=== PATIENT | male | born 1965 | race African-American/Black ===

== ENCOUNTER → 2017-05-27 | Outpatient (CLI) | payer MEDICAID ==
[~2017-05-27] MED LIST: AMLO5TAB2 PO; APIX5TAB PO; ASPI-621 PO; ATOR20TA9 PO; CARV12.52 PO; FURO40TA6 PO; IBUP-1484 PO; INSU100C SQ-INSULIN; INSU100I28 SQ-INSULIN; INSU100V5 SQ-INSULIN; LISI-170 PO; PHOS250T3 PO; REGADENOSON 0.4 MG/5 ML SYRINGE ONE; SIMV40TA PO
== END | disposition home or self-care (01) ==
LOC: RAD 10:34
PROVIDERS: ATTEND Physician Assistant
DX: I73.9 Peripheral vascular disease, unspecified (principal); R07.9 Chest pain, unspecified
CPT/HCPCS: 78452; 93017; A9502; J2785

== ENCOUNTER 2017-12-16 17:26 | Inpatient (IN) | payer MEDICAID ==
[~2017-12-16] VITALS: Ht 200.7 cm; Wt 148.5 kg
[~2017-12-16 17:26] MED LIST changes: -REGADENOSON 0.4 MG/5 ML SYRINGE ONE
[2017-12-16] MEDS ORDERED: SODIUM CHLORIDE 0.9% 1,000ML IVBOLUS ONE ×2 (18:00→19:00)
[2017-12-16 18:22] LABS: BASOPHILS # (AUTO) 0.02 x10^3/uL (0-0.1); BASOPHILS % (AUTO) 0 % (0-1); EOSINOPHILS # (AUTO) 0.24 x10^3/uL (0-0.4); EOSINOPHILS % (AUTO) 3 % (1-7); LYMPHOCYTES # (AUTO) 1.62 x10^3/uL (1-3.4); LYMPHOCYTES % (AUTO) 21 % (22-44); MD NO; MEAN CORPUSCULAR HEMOGLOBIN 28.6 pg (27.5-34.5); MEAN CORPUSCULAR HGB CONC 33.7 g/dL (33.2-36.2); MEAN CORPUSCULAR VOLUME 84.7 fL (81-97); MEAN PLATELET VOLUME 9.6 fL (7.4-10.4); MONOCYTES # (AUTO) 0.77 x10^3/uL (0.2-0.8); MONOCYTES % (AUTO) 10 % (2-9); NEUTROPHILS # (AUTO) 5.02 x10^3/uL (1.8-6.8); NEUTROPHILS % (AUTO) 66 % (42-75); PLATELET COUNT 210 x10^3/uL (130-400); RED CELL DISTRIBUTION WIDTH 14.2 % (9.4-14.8)
[2017-12-16] MEDS ORDERED: INSU100V8 SQ (18:28)
[2017-12-16 18:29] LABS: ACETONE, SERUM Negative (Negative)
[2017-12-16 18:34] LABS: ALBUMIN 3.1 g/dL (3.4-5.0); ANION GAP 10 mmol/L (5-15); CALCIUM 8.5 mg/dL (8.5-10.1); CHLORIDE 98 mmol/L (98-107); CREATININE 1.79 mg/dL (0.7-1.3)
[2017-12-16 18:55] LABS: MICROSCOPIC INDICATED
[2017-12-16] MEDS ORDERED: INSULIN REGULAR 100 UNITS/ML, 3ML VIAL ONE (18:56)
[2017-12-16 18:58] LABS: CULTURE INDICATED? NO
[2017-12-16] MEDS ORDERED: INSULIN REGULAR 100 UNITS/ML, 3ML VIAL IVPush ONE (19:00)
[2017-12-16] MEDS ORDERED: BISACODYL 10 MG SUPP PR PRN (21:00)
[2017-12-16] MEDS ORDERED: POLYETHYLENE GLYCOL 17 GM PACKET PO PRN (21:00)
[2017-12-16] MEDS ORDERED: ACETAMINOPHEN 325 MG TABLET PO PRN (21:00)
[2017-12-16] MEDS ORDERED: ONDANSETRON ODT 4 MG PO PRN (21:00)
[2017-12-16 21:28] VITALS: BP 147/94
[2017-12-16 21:46] LABS: ESTIMATED AVERAGE GLUCOSE 413 mg/dL (0-126); HEMOGLOBIN A1C > 16.0 % (4.2-6.3)
[2017-12-16] MEDS: SODIUM CHLORIDE 0.9% 1,000 ML IV SCH (21:49)
[2017-12-16] MEDS: APIXABAN 5 MG TABLET PO SCH (21:49)
[2017-12-16] MEDS: NEUTRA PHOS K 250 MG TABLET PO SCH (21:50)
[2017-12-16] MEDS: CARVEDILOL 12.5 MG TABLET PO SCH (21:50)
[2017-12-16] MEDS: AMLODIPINE 5 MG TABLET PO SCH (21:50)
[2017-12-16] MEDS: LISINOPRIL 20 MG TABLET PO SCH (21:50)
[2017-12-16] MEDS: ATORVASTATIN 20 MG TABLET PO SCH (21:50)
[2017-12-16] MEDS: INSULIN LISPRO 100 UNITS/ML, PEN SQ-INSULIN SCH (22:08)
[2017-12-16] MEDS: INSULIN GLARGINE 100 UNITS/ML, PEN SQ-INSULIN SCH (22:09)
[2017-12-17 02:07] VITALS: BP 123/74
[2017-12-17] MEDS: SODIUM CHLORIDE 0.9% 1,000 ML IV SCH ×3 (03:13→15:41)
[2017-12-17] MEDS: INSULIN LISPRO 100 UNITS/ML, PEN SQ-INSULIN SCH ×5 (03:14→20:45)
[2017-12-17 05:35] LABS: BASOPHILS # (AUTO) 0.04 x10^3/uL (0-0.1); BASOPHILS % (AUTO) 0 % (0-1); EOSINOPHILS # (AUTO) 0.44 x10^3/uL (0-0.4); EOSINOPHILS % (AUTO) 4 % (1-7); LYMPHOCYTES # (AUTO) 2.75 x10^3/uL (1-3.4); LYMPHOCYTES % (AUTO) 27 % (22-44); MD NO; MEAN CORPUSCULAR HEMOGLOBIN 28.4 pg (27.5-34.5); MEAN CORPUSCULAR HGB CONC 33.5 g/dL (33.2-36.2); MEAN CORPUSCULAR VOLUME 84.9 fL (81-97); MEAN PLATELET VOLUME 9.4 fL (7.4-10.4); MONOCYTES # (AUTO) 1.14 x10^3/uL (0.2-0.8); MONOCYTES % (AUTO) 11 % (2-9); NEUTROPHILS # (AUTO) 5.93 x10^3/uL (1.8-6.8); NEUTROPHILS % (AUTO) 58 % (42-75); PLATELET COUNT 219 x10^3/uL (130-400); RED BLOOD COUNT 5.98 x10^6/uL (4.38-5.82); RED CELL DISTRIBUTION WIDTH 14.4 % (9.4-14.8)
[2017-12-17 05:47] LABS: ALANINE AMINOTRANSFERASE 113 U/L (12-78); ALBUMIN 2.7 g/dL (3.4-5.0); ANION GAP 7 mmol/L (5-15); CHLORIDE 106 mmol/L (98-107)
[2017-12-17 05:49] LABS: ALKALINE PHOSPHATASE 102 U/L (45-117); BILIRUBIN,TOTAL 0.5 mg/dL (0.2-1.0); CREATININE 1.51 mg/dL (0.7-1.3); TOTAL PROTEIN 6.7 g/dL (6.4-8.2)
[2017-12-17 07:11] VITALS: BP 144/88
[2017-12-17] MEDS: NEUTRA PHOS K 250 MG TABLET PO SCH ×3 (08:33→20:45)
[2017-12-17] MEDS: CARVEDILOL 12.5 MG TABLET PO SCH ×2 (08:34→20:45)
[2017-12-17] MEDS: LISINOPRIL 20 MG TABLET PO SCH ×2 (08:35→20:45)
[2017-12-17] MEDS: APIXABAN 5 MG TABLET PO SCH ×2 (08:35→20:45)
[2017-12-17] MEDS: SENNA/DOCUSATE TABLET PO SCH (08:36)
[2017-12-17] MEDS: ASPIRIN 81 MG TABLET EC PO SCH (08:37)
[2017-12-17] MEDS: AMLODIPINE 5 MG TABLET PO SCH ×2 (08:38→20:45)
[2017-12-17] MEDS: INSULIN GLARGINE 100 UNITS/ML, PEN SQ-INSULIN SCH ×2 (08:45→20:46)
[2017-12-17 13:12] VITALS: BP 139/88
[2017-12-17 13:26] LABS: THYROID STIMULATING HORMONE 0.697 mIU/L (0.358-3.740)
[2017-12-17 13:27] LABS: ACETAMINOPHEN < 2 mcg/mL (10-30); SALICYLATE LEVEL < 1.7 mg/dL (2.8-20.0)
[2017-12-17] MEDS: THIAMINE 100MG TABLET PO SCH (16:17)
[2017-12-17] MEDS: FOLIC ACID 1 MG TABLET PO SCH (16:17)
[2017-12-17 17:40] LABS: AMPHETAMINE SCREEN, URINE Positive (Negative); BARBITURATE SCREEN, URINE Negative (Negative); BENZODIAZEPINE SCREEN, URINE Negative (Negative); CANNABINOID SCREEN, URINE Negative (Negative); COCAINE SCREEN, URINE Negative (Negative); METHADONE SCREEN, URINE Negative (Negative); OPIATE SCREEN, URINE Negative (Negative)
[2017-12-17 20:19] VITALS: BP 151/84
[2017-12-17] MEDS: LACTULOSE 20 GM/30 ML UDC PO SCH (20:44)
[2017-12-17] MEDS: ATORVASTATIN 20 MG TABLET PO SCH (20:45)
[2017-12-18 02:49] VITALS: BP 134/86
[2017-12-18 05:18] LABS: BASOPHILS # (AUTO) 0.03 x10^3/uL (0-0.1); BASOPHILS % (AUTO) 0 % (0-1); EOSINOPHILS # (AUTO) 0.34 x10^3/uL (0-0.4); EOSINOPHILS % (AUTO) 4 % (1-7); LYMPHOCYTES # (AUTO) 2.52 x10^3/uL (1-3.4); LYMPHOCYTES % (AUTO) 31 % (22-44); MD NO; MEAN CORPUSCULAR HEMOGLOBIN 28.5 pg (27.5-34.5); MEAN CORPUSCULAR HGB CONC 33.3 g/dL (33.2-36.2); MEAN CORPUSCULAR VOLUME 85.5 fL (81-97); MEAN PLATELET VOLUME 9.2 fL (7.4-10.4); MONOCYTES # (AUTO) 0.82 x10^3/uL (0.2-0.8); MONOCYTES % (AUTO) 10 % (2-9); NEUTROPHILS # (AUTO) 4.46 x10^3/uL (1.8-6.8); NEUTROPHILS % (AUTO) 55 % (42-75); PLATELET COUNT 207 x10^3/uL (130-400); RED BLOOD COUNT 5.95 x10^6/uL (4.38-5.82)
[2017-12-18 05:25] LABS: ALBUMIN 2.5 g/dL (3.4-5.0); ANION GAP 6 mmol/L (5-15); CALCIUM 7.6 mg/dL (8.5-10.1); CHLORIDE 106 mmol/L (98-107)
[2017-12-18 05:29] LABS: ALANINE AMINOTRANSFERASE 109 U/L (12-78); ALKALINE PHOSPHATASE 87 U/L (45-117); BILIRUBIN,TOTAL 0.4 mg/dL (0.2-1.0); CREATININE 1.31 mg/dL (0.7-1.3); TOTAL PROTEIN 6.2 g/dL (6.4-8.2)
[2017-12-18] MEDS: INSULIN LISPRO 100 UNITS/ML, PEN SQ-INSULIN SCH ×4 (07:00→20:46)
[2017-12-18 07:21] VITALS: BP 143/74
[2017-12-18] MEDS ORDERED: POTASSIUM CHLORIDE 20 MEQ TAB.ER.PRT PO ONE (09:00)
[2017-12-18] MEDS: LACTULOSE 20 GM/30 ML UDC PO SCH ×3 (10:38→20:47)
[2017-12-18] MEDS: LISINOPRIL 20 MG TABLET PO SCH ×2 (10:38→20:47)
[2017-12-18] MEDS: ASPIRIN 81 MG TABLET EC PO SCH (10:39)
[2017-12-18] MEDS: THIAMINE 100MG TABLET PO SCH (10:39)
[2017-12-18] MEDS: NEUTRA PHOS K 250 MG TABLET PO SCH ×3 (10:39→20:47)
[2017-12-18] MEDS: FOLIC ACID 1 MG TABLET PO SCH (10:39)
[2017-12-18] MEDS: SENNA/DOCUSATE TABLET PO SCH (10:39)
[2017-12-18] MEDS: CARVEDILOL 12.5 MG TABLET PO SCH ×2 (10:39→20:47)
[2017-12-18] MEDS: APIXABAN 5 MG TABLET PO SCH ×2 (10:39→20:47)
[2017-12-18] MEDS: AMLODIPINE 5 MG TABLET PO SCH ×2 (10:39→20:47)
[2017-12-18] MEDS: INSULIN GLARGINE 100 UNITS/ML, PEN SQ-INSULIN SCH ×2 (10:41→20:46)
[2017-12-18] MEDS: SODIUM CHLORIDE 0.9% 1,000 ML IV SCH ×2 (10:44→20:46)
[2017-12-18 13:12] VITALS: BP 146/92
[2017-12-18 18:45] VITALS: BP 163/81
[2017-12-18] MEDS: ATORVASTATIN 20 MG TABLET PO SCH (20:47)
[2017-12-19 01:15] VITALS: BP 142/73
[2017-12-19 05:17] LABS: ALBUMIN 2.7 g/dL (3.4-5.0); ANION GAP 4 mmol/L (5-15); CALCIUM 8.1 mg/dL (8.5-10.1); CHLORIDE 106 mmol/L (98-107)
[2017-12-19 05:32] LABS: ALANINE AMINOTRANSFERASE 107 U/L (12-78); ALKALINE PHOSPHATASE 88 U/L (45-117); BILIRUBIN,TOTAL 0.7 mg/dL (0.2-1.0); TOTAL PROTEIN 6.6 g/dL (6.4-8.2)
[2017-12-19] MEDS: INSULIN LISPRO 100 UNITS/ML, PEN SQ-INSULIN SCH ×2 (07:00→12:45)
[2017-12-19 07:25] VITALS: BP 146/83
[2017-12-19] MEDS: LACTULOSE 20 GM/30 ML UDC PO SCH (08:37)
[2017-12-19] MEDS: ASPIRIN 81 MG TABLET EC PO SCH (08:38)
[2017-12-19] MEDS: THIAMINE 100MG TABLET PO SCH (08:38)
[2017-12-19] MEDS: CARVEDILOL 12.5 MG TABLET PO SCH (08:38)
[2017-12-19] MEDS: APIXABAN 5 MG TABLET PO SCH (08:38)
[2017-12-19] MEDS: FOLIC ACID 1 MG TABLET PO SCH (08:38)
[2017-12-19] MEDS: SENNA/DOCUSATE TABLET PO SCH (08:38)
[2017-12-19] MEDS: AMLODIPINE 5 MG TABLET PO SCH (08:38)
[2017-12-19] MEDS: INSULIN GLARGINE 100 UNITS/ML, PEN SQ-INSULIN SCH (08:38)
[2017-12-19] MEDS: NEUTRA PHOS K 250 MG TABLET PO SCH (08:38)
[2017-12-19] MEDS: LISINOPRIL 20 MG TABLET PO SCH (08:38)
[2017-12-19] MEDS ORDERED: POTASSIUM CHLORIDE 20 MEQ TAB.ER.PRT PO ONE (09:00)
[2017-12-19] MEDS ORDERED: THIA100T6 PO (11:51)
[2017-12-19] MEDS ORDERED: INSU100I13 SQ-INSULIN (11:51)
[2017-12-19] MEDS ORDERED: LACT20SO13 PO (11:51)
[2017-12-19] MEDS ORDERED: INSU100I11 SQ-INSULIN (11:51)
[2017-12-19] MEDS ORDERED: MAGNESIUM OXIDE 400 MG TABLET PO SCH (12:00)
== END 2017-12-19 14:00 | disposition home or self-care (01) | DRG 91 ==
LOC: ED 21:06 → 3NE 21:23 → DCLOUNGE 12-19 13:36
PROVIDERS: ADMIT Hospitalist; ATTEND Hospitalist
DX: G92 Toxic encephalopathy (principal); N17.0 Acute kidney failure with tubular necrosis; D68.69 Other thrombophilia; E44.0 Moderate protein-calorie malnutrition; D75.1 Secondary polycythemia; E11.65 Type 2 diabetes mellitus with hyperglycemia; I48.2 Chronic atrial fibrillation; I50.32 Chronic diastolic (congestive) heart failure; E87.1 Hypo-osmolality and hyponatremia; E66.01 Morbid (severe) obesity due to excess calories; I11.0 Hypertensive heart disease with heart failure; T43.625A Adverse effect of amphetamines, initial encounter; E86.0 Dehydration; E87.6 Hypokalemia; F15.90 Other stimulant use, unspecified, uncomplicated; G47.33 Obstructive sleep apnea (adult) (pediatric); J45.909 Unspecified asthma, uncomplicated; Z79.01 Long term (current) use of anticoagulants; Z79.4 Long term (current) use of insulin; Z82.49 Family history of ischemic heart disease and other diseases of the circulatory system; Z87.891 Personal history of nicotine dependence; Y92.89 Other specified places as the place of occurrence of the external cause; Z91.14 Patient's other noncompliance with medication regimen; Z91.19 Patient's noncompliance with other medical treatment and regimen; Z68.36 Body mass index [BMI] 36.0-36.9, adult
CPT/HCPCS: 36415; 80048; 80053; 80307; 80329; 81001; 82010; 82040; 82140; 82607; 82800; 82947; 82962; 83036; 83735; 84100; 84443; 85025; 93005; 96361; 96374; G0480; J1815; J7030

== ENCOUNTER 2018-04-15 13:10 | Inpatient (IN) | payer MEDICAID ==
[~2018-04-15] VITALS: Ht 198.1 cm; Wt 145.6 kg
[~2018-04-15 13:10] MED LIST changes: +INSU100I11 SQ-INSULIN; +INSU100I13 SQ-INSULIN; +INSU100V8 SQ; +LACT20SO13 PO; +THIA100T67 PO
[2018-04-15] MEDS ORDERED: ASPIRIN 325 MG TABLET PO STA (13:28)
[2018-04-15] MEDS ORDERED: ASPIRIN 325 MG TABLET ONE (13:36)
[2018-04-15 13:44] LABS: BASOPHILS # (AUTO) 0.05 x10^3/uL (0-0.1); BASOPHILS % (AUTO) 1 % (0-1); EOSINOPHILS # (AUTO) 0.17 x10^3/uL (0-0.4); EOSINOPHILS % (AUTO) 2 % (1-7); LYMPHOCYTES # (AUTO) 2.98 x10^3/uL (1-3.4); LYMPHOCYTES % (AUTO) 28 % (22-44); MD NO; MEAN CORPUSCULAR HEMOGLOBIN 28.3 pg (27.5-34.5); MEAN CORPUSCULAR VOLUME 85.8 fL (81-97); MEAN PLATELET VOLUME 9.5 fL (7.4-10.4); MONOCYTES # (AUTO) 0.78 x10^3/uL (0.2-0.8); MONOCYTES % (AUTO) 7 % (2-9); NEUTROPHILS # (AUTO) 6.61 x10^3/uL (1.8-6.8); NEUTROPHILS % (AUTO) 62 % (42-75); PLATELET COUNT 280 x10^3/uL (130-400); RED BLOOD COUNT 7.27 x10^6/uL (4.38-5.82); RED CELL DISTRIBUTION WIDTH 14.3 % (9.4-14.8)
[2018-04-15] MEDS ORDERED: FENTANYL PF 100 MCG/2ML ONE (13:50)
[2018-04-15] MEDS ORDERED: HEPARIN 1,000 UNITS/ML, 10ML ONE (13:50)
[2018-04-15] MEDS ORDERED: NITROGLYCERIN 5 MG/ML, 10ML ONE (13:50)
[2018-04-15] MEDS ORDERED: TICAGRELOR 90 MG TABLET ONE (13:50)
[2018-04-15] MEDS ORDERED: BIVALIRUDIN 250 MG ONE (13:50)
[2018-04-15] MEDS ORDERED: MIDAZOLAM 1 MG/ML, 5ML ONE (13:50)
[2018-04-15] MEDS ORDERED: AMIODARONE 150 MG in DEXTROSE 5% 100 ML IV ONE (14:00)
[2018-04-15] MEDS ORDERED: FILTER 0.22 MICRON IV ONE (14:00)
[2018-04-15] MEDS ORDERED: METOPROLOL 1 MG/ML, 5ML ONE ×2 (14:03→14:08)
[2018-04-15 14:22] LABS: INTERNATIONAL NORMALIZED RATIO 0.93 (0.93-1.1); PROTHROMBIN TIME 9.7 Seconds (9.6-11.5)
[2018-04-15 14:24] LABS: TROPONIN I 0.633 ng/mL (0.000-0.045)
[2018-04-15] MEDS: AMIODARONE 900 MG in DEXTROSE 5% 482 ML IV PRN (15:01)
[2018-04-15] MEDS ORDERED: hydrALAzine 20 MG/ML, 1ML IVPush PRN (17:00)
[2018-04-15] MEDS ORDERED: LIDODERM 5% PATCH TD PRN (17:00)
[2018-04-15] MEDS ORDERED: LABETALOL 5MG/ML, 20ML IVPush PRN (17:00)
[2018-04-15] MEDS ORDERED: ENALAPRILAT 1.25 MG/ML, 2ML IVPush PRN (17:00)
[2018-04-15] MEDS ORDERED: BISACODYL 10 MG SUPP PR PRN (17:00)
[2018-04-15] MEDS ORDERED: ACETAMINOPHEN 325 MG TABLET PO PRN (17:00)
[2018-04-15 17:17] VITALS: BP 105/76
[2018-04-15 17:26] LABS: ANION GAP 9 mmol/L (5-15); CHLORIDE 95 mmol/L (98-107); CREATININE 2.23 mg/dL (0.7-1.3)
[2018-04-15 17:49] LABS: HEMOGLOBIN A1C 11.5 % (4.2-6.3)
[2018-04-15] MEDS: SODIUM CHLORIDE 0.9% 1,000 ML IV SCH (19:59)
[2018-04-15] MEDS: AMLODIPINE 5 MG TABLET PO SCH (20:31)
[2018-04-15] MEDS: ATORVASTATIN 20 MG TABLET PO SCH (20:31)
[2018-04-15] MEDS: APIXABAN 5 MG TABLET PO SCH (20:32)
[2018-04-15] MEDS: CARVEDILOL 12.5 MG TABLET PO SCH (20:32)
[2018-04-15] MEDS: INSULIN GLARGINE 100 UNITS/ML, PEN SQ-INSULIN SCH (20:32)
[2018-04-15] MEDS ORDERED: SIMVASTATIN 40 MG TABLET PO SCH (21:00)
[2018-04-15] MEDS ORDERED: DOCUSATE 100 MG CAPSULE PO PRN (21:00)
[2018-04-16 04:00] VITALS: BP 103/88
[2018-04-16 04:04] LABS: ALANINE AMINOTRANSFERASE 230 U/L (12-78); ALBUMIN 2.7 g/dL (3.4-5.0); ALKALINE PHOSPHATASE 133 U/L (45-117); ANION GAP 10 mmol/L (5-15); BILIRUBIN,TOTAL 0.5 mg/dL (0.2-1.0); CALCIUM 8.8 mg/dL (8.5-10.1); CHLORIDE 94 mmol/L (98-107); CHOL/HDL RATIO 10.3; CHOLESTEROL, TOTAL 216 mg/dL (140-239); CREATININE 1.99 mg/dL (0.7-1.3); HDL CHOL % 10 % (26-37); HDL CHOLESTEROL (DIRECT) 21 mg/dL (40-60); TOTAL PROTEIN 7.8 g/dL (6.4-8.2); TRIGLYCERIDES 435 mg/dL (50-200)
[2018-04-16 04:59] LABS: TROPONIN I 0.499 ng/mL (0.000-0.045)
[2018-04-16 05:12] LABS: BASOPHILS # (AUTO) 0.03 x10^3/uL (0-0.1); BASOPHILS % (AUTO) 0 % (0-1); EOSINOPHILS # (AUTO) 0.16 x10^3/uL (0-0.4); EOSINOPHILS % (AUTO) 2 % (1-7); LYMPHOCYTES % (AUTO) 26 % (22-44); MD NO; MEAN CORPUSCULAR HEMOGLOBIN 28.7 pg (27.5-34.5); MEAN CORPUSCULAR HGB CONC 33.5 g/dL (33.2-36.2); MEAN CORPUSCULAR VOLUME 85.6 fL (81-97); MEAN PLATELET VOLUME 9.8 fL (7.4-10.4); MONOCYTES # (AUTO) 0.69 x10^3/uL (0.2-0.8); MONOCYTES % (AUTO) 7 % (2-9); NEUTROPHILS # (AUTO) 6.39 x10^3/uL (1.8-6.8); NEUTROPHILS % (AUTO) 65 % (42-75); PLATELET COUNT 273 x10^3/uL (130-400); RED BLOOD COUNT 6.97 x10^6/uL (4.38-5.82); RED CELL DISTRIBUTION WIDTH 14.5 % (9.4-14.8)
[2018-04-16] MEDS: AMLODIPINE 5 MG TABLET PO SCH ×2 (08:12→20:04)
[2018-04-16] MEDS: APIXABAN 5 MG TABLET PO SCH ×2 (08:12→20:05)
[2018-04-16] MEDS: INSULIN GLARGINE 100 UNITS/ML, PEN SQ-INSULIN SCH ×3 (08:12→20:18)
[2018-04-16] MEDS: PANTOPRAZOLE 40 MG IV IVPush SCH (08:12)
[2018-04-16] MEDS: CARVEDILOL 12.5 MG TABLET PO SCH ×2 (08:12→20:04)
[2018-04-16] MEDS: THIAMINE 100MG TABLET PO SCH (08:13)
[2018-04-16] MEDS: INSULIN LISPRO 100 UNITS/ML, PEN SQ-INSULIN SCH ×4 (08:44→20:19)
[2018-04-16] MEDS ORDERED: ASPIRIN 81 MG TABLET EC PO SCH (09:00)
[2018-04-16] MEDS ORDERED: INSULIN GLARGINE 100 UNITS/ML, PEN SQ-INSULIN SCH (09:00)
[2018-04-16] MEDS ORDERED: FILTER 0.22 MICRON IV SCH (09:00)
[2018-04-16] MEDS ORDERED: INSULIN GLARGINE 100 UNITS/ML, PEN SQ-INSULIN ONE (09:00)
[2018-04-16] MEDS: SODIUM CHLORIDE 0.9% 1,000 ML IV SCH (09:29)
[2018-04-16] MEDS: AMIODARONE 900 MG in DEXTROSE 5% 482 ML IV PRN (09:29)
[2018-04-16] MEDS ORDERED: INSULIN LISPRO 100 UNITS/ML, PEN SQ-INSULIN SCH (11:00)
[2018-04-16 17:44] VITALS: BP 111/81
[2018-04-16 18:34] VITALS: BP 117/78
[2018-04-16] MEDS: ATORVASTATIN 20 MG TABLET PO SCH (20:04)
[2018-04-17] MEDS: INSULIN LISPRO 100 UNITS/ML, PEN SQ-INSULIN SCH ×6 (00:56→21:21)
[2018-04-17 01:10] VITALS: BP 104/72
[2018-04-17 05:11] LABS: BASOPHILS # (AUTO) 0.02 x10^3/uL (0-0.1); BASOPHILS % (AUTO) 0 % (0-1); EOSINOPHILS # (AUTO) 0.21 x10^3/uL (0-0.4); EOSINOPHILS % (AUTO) 2 % (1-7); LYMPHOCYTES # (AUTO) 2.52 x10^3/uL (1-3.4); LYMPHOCYTES % (AUTO) 26 % (22-44); MD NO; MEAN CORPUSCULAR HEMOGLOBIN 29.2 pg (27.5-34.5); MEAN CORPUSCULAR HGB CONC 33.8 g/dL (33.2-36.2); MEAN CORPUSCULAR VOLUME 86.4 fL (81-97); MEAN PLATELET VOLUME 9.4 fL (7.4-10.4); MONOCYTES # (AUTO) 0.72 x10^3/uL (0.2-0.8); MONOCYTES % (AUTO) 7 % (2-9); NEUTROPHILS # (AUTO) 6.26 x10^3/uL (1.8-6.8); NEUTROPHILS % (AUTO) 64 % (42-75); PLATELET COUNT 255 x10^3/uL (130-400); RED CELL DISTRIBUTION WIDTH 14.3 % (9.4-14.8)
[2018-04-17 05:17] LABS: CHLORIDE 99 mmol/L (98-107)
[2018-04-17 05:24] LABS: ALANINE AMINOTRANSFERASE 184 U/L (12-78); ALBUMIN 2.5 g/dL (3.4-5.0); ALKALINE PHOSPHATASE 98 U/L (45-117); ANION GAP 9 mmol/L (5-15); BILIRUBIN,TOTAL 0.6 mg/dL (0.2-1.0); CALCIUM 8.4 mg/dL (8.5-10.1); TOTAL PROTEIN 6.9 g/dL (6.4-8.2)
[2018-04-17] MEDS ORDERED: PROPOFOL 10 MG/ML, 20ML ONE (08:05)
[2018-04-17] MEDS: PANTOPRAZOLE 40 MG IV IVPush SCH (09:27)
[2018-04-17] MEDS: APIXABAN 5 MG TABLET PO SCH ×2 (09:28→21:19)
[2018-04-17] MEDS: AMLODIPINE 5 MG TABLET PO SCH ×2 (09:28→21:20)
[2018-04-17] MEDS: CARVEDILOL 12.5 MG TABLET PO SCH ×2 (09:28→21:20)
[2018-04-17] MEDS: THIAMINE 100MG TABLET PO SCH (09:28)
[2018-04-17] MEDS: INSULIN GLARGINE 100 UNITS/ML, PEN SQ-INSULIN SCH ×2 (09:31→21:20)
[2018-04-17] MEDS: AMIODARONE 900 MG in DEXTROSE 5% 482 ML IV PRN (13:18)
[2018-04-17 19:15] VITALS: BP 112/68
[2018-04-17 21:14] VITALS: BP 120/73
[2018-04-17] MEDS: ATORVASTATIN 20 MG TABLET PO SCH (21:19)
[2018-04-18] MEDS: INSULIN LISPRO 100 UNITS/ML, PEN SQ-INSULIN SCH ×6 (00:40→20:42)
[2018-04-18 01:33] VITALS: BP 130/80
[2018-04-18 08:23] VITALS: BP 125/77
[2018-04-18] MEDS: AMLODIPINE 5 MG TABLET PO SCH ×2 (08:24→20:43)
[2018-04-18] MEDS: CARVEDILOL 12.5 MG TABLET PO SCH ×2 (08:24→20:42)
[2018-04-18] MEDS: THIAMINE 100MG TABLET PO SCH (08:24)
[2018-04-18] MEDS: INSULIN GLARGINE 100 UNITS/ML, PEN SQ-INSULIN SCH ×2 (08:25→20:44)
[2018-04-18] MEDS: APIXABAN 5 MG TABLET PO SCH ×2 (08:25→20:42)
[2018-04-18] MEDS: PANTOPRAZOLE 40 MG IV IVPush SCH (08:25)
[2018-04-18] MEDS: ASPIRIN 81 MG TABLET EC PO SCH (10:07)
[2018-04-18] MEDS: AMIODARONE 200 MG TABLET PO SCH (10:07)
[2018-04-18 14:40] VITALS: BP 102/65
[2018-04-18 19:10] VITALS: BP 110/63
[2018-04-18 20:31] VITALS: BP 122/72
[2018-04-18] MEDS: ATORVASTATIN 20 MG TABLET PO SCH (20:43)
[2018-04-19 00:20] VITALS: BP 116/71
[2018-04-19] MEDS: INSULIN LISPRO 100 UNITS/ML, PEN SQ-INSULIN SCH ×4 (00:40→11:46)
[2018-04-19] MEDS: ASPIRIN 81 MG TABLET EC PO SCH (05:31)
[2018-04-19] MEDS ORDERED: PANTOPROZOLE 40MG TABLET PO SCH (07:36)
[2018-04-19 07:50] VITALS: BP 124/77
[2018-04-19] MEDS: CARVEDILOL 12.5 MG TABLET PO SCH (07:53)
[2018-04-19] MEDS: APIXABAN 5 MG TABLET PO SCH (07:53)
[2018-04-19] MEDS: AMLODIPINE 5 MG TABLET PO SCH (07:54)
[2018-04-19] MEDS: THIAMINE 100MG TABLET PO SCH (07:54)
[2018-04-19] MEDS: AMIODARONE 200 MG TABLET PO SCH (07:54)
[2018-04-19] MEDS: INSULIN GLARGINE 100 UNITS/ML, PEN SQ-INSULIN SCH (07:55)
[2018-04-19] MEDS ORDERED: AMIODARONE 200 MG TABLET PO SCH (09:00)
[2018-04-19] MEDS ORDERED: AMIO200T42 PO (10:50)
[2018-04-19] MEDS ORDERED: INSU100I13 SQ-INSULIN (10:50)
[2018-04-19] MEDS ORDERED: LISI5TAB7 PO (11:01)
[2018-04-19 14:03] VITALS: BP 126/77
== END 2018-04-19 16:23 | disposition home or self-care (01) | DRG 280 ==
LOC: ED 13:52 → EDIP 13:53 → CCU 14:45 → 5SO 04-16 17:26
PROVIDERS: ADMIT Hospitalist; ATTEND Hospitalist
PROC: 4A023N7 Measurement of Cardiac Sampling and Pressure, Left Heart, Percutaneous Approach (ICD-10-PCS; 2018-04-15)
PROC: B2111ZZ Fluoroscopy of Multiple Coronary Arteries using Low Osmolar Contrast (ICD-10-PCS; 2018-04-15)
PROC: B2151ZZ Fluoroscopy of Left Heart using Low Osmolar Contrast (ICD-10-PCS; 2018-04-15)
PROC: B24BZZ4 Ultrasonography of Heart with Aorta, Transesophageal (ICD-10-PCS; 2018-04-17)
PROC: 5A2204Z Restoration of Cardiac Rhythm, Single (ICD-10-PCS; principal; 2018-04-17 08:00)
DX: I21.19 ST elevation (STEMI) myocardial infarction involving other coronary artery of inferior wall (principal); N17.0 Acute kidney failure with tubular necrosis; D68.69 Other thrombophilia; E87.1 Hypo-osmolality and hyponatremia; I13.0 Hypertensive heart and chronic kidney disease with heart failure and stage 1 through stage 4 chronic kidney disease, or unspecified chronic kidney disease; I50.32 Chronic diastolic (congestive) heart failure; I48.92 Unspecified atrial flutter; I42.9 Cardiomyopathy, unspecified; I48.91 Unspecified atrial fibrillation; I24.9 Acute ischemic heart disease, unspecified; I25.10 Atherosclerotic heart disease of native coronary artery without angina pectoris; N18.3 Chronic kidney disease, stage 3 (moderate); I25.2 Old myocardial infarction; D75.1 Secondary polycythemia; E11.22 Type 2 diabetes mellitus with diabetic chronic kidney disease; E11.51 Type 2 diabetes mellitus with diabetic peripheral angiopathy without gangrene; E78.5 Hyperlipidemia, unspecified; F17.210 Nicotine dependence, cigarettes, uncomplicated; Z91.19 Patient's noncompliance with other medical treatment and regimen; Z82.49 Family history of ischemic heart disease and other diseases of the circulatory system; Z79.82 Long term (current) use of aspirin; Z79.4 Long term (current) use of insulin; J44.9 Chronic obstructive pulmonary disease, unspecified; G47.33 Obstructive sleep apnea (adult) (pediatric); Z71.51 Drug abuse counseling and surveillance of drug abuser; F15.10 Other stimulant abuse, uncomplicated; Z71.6 Tobacco abuse counseling
CPT/HCPCS: 36415; 71045; 76770; 80047; 80048; 80053; 80061; 82962; 83036; 83735; 84100; 84484; 85025; 85610; 85730; 87081; 92960; 93005; 93306; 93312; 93321; 93325; 93458; 99156; 99285; C1760; C1769; C1894; J0583; J1644; J2250; J2704; J3010; C9113; J0282; J1815; J7030; J7060; Q9967

== ENCOUNTER 2018-09-22 23:40 | Inpatient (IN) | payer MEDICAID ==
[~2018-09-22] VITALS: Ht 200.7 cm; Wt 145.4 kg
[~2018-09-22 23:40] MED LIST changes: +AMIO200T42 PO; +AMLO-150 PO; -AMLO5TAB2 PO; -ASPI-621 PO; +ASPI81TA45 PO; +ATOR20TA37 PO; -ATOR20TA9 PO; +LISI5TAB7 PO
--- NOTE | 2018-09-22 23:52 | NUR ---
PT STRAIGHT TO T4. ERMD AT BEDSIDE. POST VAGAL MANEUVER HR NOW IN 120S. PT TOLERATED WELL
[2018-09-22] MEDS ORDERED: DILTIAZEM 125 MG in DEXTROSE 5% 100 ML IV SCH (23:53)
[2018-09-23] VITALS (8 sets, daily range): BP systolic 111–143; BP diastolic 74–98
[2018-09-23 00:15] LABS: BASOPHILS # (AUTO) 0.04 x10^3/uL (0-0.1); BASOPHILS % (AUTO) 0 % (0-1); EOSINOPHILS # (AUTO) 0.22 x10^3/uL (0-0.4); EOSINOPHILS % (AUTO) 2 % (1-7); LYMPHOCYTES # (AUTO) 2.95 x10^3/uL (1-3.4); LYMPHOCYTES % (AUTO) 29 % (22-44); MD NO; MEAN CORPUSCULAR HEMOGLOBIN 28.4 pg (27.5-34.5); MEAN CORPUSCULAR VOLUME 86.2 fL (81-97); MEAN PLATELET VOLUME 9.6 fL (7.4-10.4); MONOCYTES # (AUTO) 0.96 x10^3/uL (0.2-0.8); MONOCYTES % (AUTO) 9 % (2-9); NEUTROPHILS # (AUTO) 6.15 x10^3/uL (1.8-6.8); NEUTROPHILS % (AUTO) 60 % (42-75); PLATELET COUNT 255 x10^3/uL (130-400); RED BLOOD COUNT 6.57 x10^6/uL (4.38-5.82)
--- NOTE | 2018-09-23 00:22 | NUR ---
PT WITH HEART RATE VARYING FROM 118-144. INFORMED. DILT DRIP STARTED. POC DISCUSSED. PT ASSISTED WITH URINAL. PT DENIES FURTHER NEEDS AT THIS TIME.
[2018-09-23 00:25] LABS: ALBUMIN 2.9 g/dL (3.4-5.0); ANION GAP 9 mmol/L (5-15); CALCIUM 9.2 mg/dL (8.5-10.1); CHLORIDE 86 mmol/L (98-107); CREATININE 2.11 mg/dL (0.7-1.3)
[2018-09-23 00:34] LABS: T4 (THYROXINE) 12.1 mcg/dL (4.5-12.1); TROPONIN I 0.984 ng/mL (0.000-0.045)
--- NOTE | 2018-09-23 00:50 | NUR ---
PT TOLERATING PO FLUIDS AT THIS TIME.
[2018-09-23 00:56] LABS: PH, VENOUS 7.367 pH (7.320-7.420)
[2018-09-23] MEDS ORDERED: SODIUM CHLORIDE 0.9% 1,000ML IVBOLUS ONE (01:00)
[2018-09-23] MEDS ORDERED: SODIUM CHLORIDE 0.9% 1,000 ML IV SCH (01:00)
--- NOTE | 2018-09-23 01:40 | NUR ---
FSBS READS "HIGH"
[2018-09-23] MEDS ORDERED: INSULIN REGULAR 100 UNITS/ML, 3ML VIAL ONE (01:43)
[2018-09-23 01:49] LABS: ACETONE, SERUM Trace (10mg/dL) mg/dL (Negative)
--- NOTE | 2018-09-23 01:55 | NUR ---
PT HAS SO FAR HAD APPROX 1200ML URINE OUT.
[2018-09-23] MEDS ORDERED: INSULIN REGULAR 100 UNITS/ML, 3ML VIAL IVPush ONE (02:00)
[2018-09-23] MEDS ORDERED: DOCUSATE 100 MG CAPSULE PO PRN (03:00)
[2018-09-23] MEDS ORDERED: PROMETHAZINE 25 MG/ML, 1ML IM PRN (03:00)
[2018-09-23] MEDS ORDERED: ACETAMINOPHEN 325 MG TABLET PO PRN (03:00)
[2018-09-23] MEDS ORDERED: ONDANSETRON 2MG/ML, 2ML IVPush PRN (03:00)
[2018-09-23] MEDS ORDERED: LABETALOL 5MG/ML, 20ML IVPush PRN (03:00)
[2018-09-23] MEDS ORDERED: BISACODYL 10 MG SUPP PR PRN (03:00)
[2018-09-23] MEDS ORDERED: morphine SULFATE 10 MG/ML, 1ML IVPush PRN (03:00)
[2018-09-23] MEDS ORDERED: ONDANSETRON ODT 4 MG PO PRN (03:00)
[2018-09-23] MEDS ORDERED: POLYETHYLENE GLYCOL 17 GM PACKET PO PRN (03:00)
[2018-09-23] MEDS ORDERED: DILTIAZEM 125 MG in SODIUM CHLORIDE 0.9% 100 ML IV PRN (03:00)
[2018-09-23] MEDS ORDERED: hydrALAzine 20 MG/ML, 1ML IVPush PRN (03:00)
[2018-09-23 03:19] LABS: HEMOGLOBIN A1C 12.6 % (4.2-6.3)
[2018-09-23 03:19] LABS: FREE T4 (FREE THYROXINE) 1.57 ng/dL (0.76-1.46); THYROID STIMULATING HORMONE 3.18 mIU/L (0.358-3.740)
[2018-09-23] MEDS: OXYcodone IR 5MG TABLET PO PRN ×2 (03:35→13:51)
[2018-09-23] MEDS: SODIUM CHLORIDE 0.9% 1,000 ML IV SCH ×3 (03:35→20:09)
[2018-09-23] MEDS: NICOTINE 7 MG/24 HR PATCH.TD24 TD SCH (03:35)
[2018-09-23] MEDS: INSULIN GLARGINE 100 UNITS/ML, PEN SQ-INSULIN SCH ×3 (04:01→20:09)
[2018-09-23] MEDS: CARVEDILOL 12.5 MG TABLET PO SCH ×2 (05:19→17:13)
[2018-09-23] MEDS ORDERED: INSULIN LISPRO 100 UNITS/ML, PEN SQ-INSULIN SCH (07:00)
[2018-09-23] MEDS: INSULIN LISPRO 100 UNITS/ML, PEN SQ-INSULIN SCH ×4 (07:51→22:01)
[2018-09-23] MEDS: APIXABAN 5 MG TABLET PO SCH ×2 (09:43→20:09)
[2018-09-23 12:58] LABS: MICROSCOPIC AUTO
[2018-09-23 12:59] LABS: CULTURE INDICATED? YES
[2018-09-23 13:09] LABS: AMPHETAMINE SCREEN, URINE Positive (Negative); BARBITURATE SCREEN, URINE Negative (Negative); BENZODIAZEPINE SCREEN, URINE Negative (Negative); CANNABINOID SCREEN, URINE Negative (Negative); COCAINE SCREEN, URINE Negative (Negative); METHADONE SCREEN, URINE Negative (Negative)
[2018-09-23 13:12] LABS: OPIATE SCREEN, URINE Negative (Negative)
[2018-09-24 01:52] VITALS: BP 118/77
[2018-09-24] MEDS ORDERED: DILTIAZEM 125 MG in SODIUM CHLORIDE 0.9% 100 ML IV PRN (03:00)
[2018-09-24] MEDS: SODIUM CHLORIDE 0.9% 1,000 ML IV SCH (04:41)
[2018-09-24] MEDS: NICOTINE 7 MG/24 HR PATCH.TD24 TD SCH (04:41)
[2018-09-24] MEDS: CARVEDILOL 12.5 MG TABLET PO SCH (05:36)
[2018-09-24 07:07] VITALS: BP 109/79
[2018-09-24] MEDS: APIXABAN 5 MG TABLET PO SCH (07:33)
[2018-09-24] MEDS: INSULIN LISPRO 100 UNITS/ML, PEN SQ-INSULIN SCH ×2 (07:39→10:58)
[2018-09-24] MEDS: INSULIN GLARGINE 100 UNITS/ML, PEN SQ-INSULIN SCH (07:39)
[2018-09-24 07:54] LABS: ALBUMIN 2.1 g/dL (3.4-5.0); ANION GAP 8 mmol/L (5-15); CALCIUM 8.4 mg/dL (8.5-10.1); CHLORIDE 104 mmol/L (98-107)
[2018-09-24 07:55] LABS: BASOPHILS # (AUTO) 0.02 x10^3/uL (0-0.1); BASOPHILS % (AUTO) 0 % (0-1); EOSINOPHILS # (AUTO) 0.39 x10^3/uL (0-0.4); EOSINOPHILS % (AUTO) 5 % (1-7); LYMPHOCYTES # (AUTO) 2.03 x10^3/uL (1-3.4); LYMPHOCYTES % (AUTO) 28 % (22-44); MD NO; MEAN CORPUSCULAR HEMOGLOBIN 28.2 pg (27.5-34.5); MEAN CORPUSCULAR HGB CONC 32.9 g/dL (33.2-36.2); MEAN CORPUSCULAR VOLUME 85.5 fL (81-97); MEAN PLATELET VOLUME 9.1 fL (7.4-10.4); MONOCYTES # (AUTO) 0.56 x10^3/uL (0.2-0.8); MONOCYTES % (AUTO) 8 % (2-9); NEUTROPHILS # (AUTO) 4.26 x10^3/uL (1.8-6.8); NEUTROPHILS % (AUTO) 59 % (42-75); PLATELET COUNT 227 x10^3/uL (130-400); RED BLOOD COUNT 6.21 x10^6/uL (4.38-5.82)
[2018-09-24 07:59] LABS: ALANINE AMINOTRANSFERASE 82 U/L (12-78); ALKALINE PHOSPHATASE 115 U/L (45-117); BILIRUBIN,TOTAL 0.4 mg/dL (0.2-1.0); CHOL/HDL RATIO 7.1; CHOLESTEROL, TOTAL 200 mg/dL (140-239); CREATININE 1.35 mg/dL (0.7-1.3); HDL CHOL % 14 % (26-37); HDL CHOLESTEROL (DIRECT) 28 mg/dL (40-60); LDL CHOLESTEROL,CALCULATED 109 mg/dL (54-169); LDL/HDL RATIO 3.9 (0.5-3.0); TOTAL PROTEIN 6.4 g/dL (6.4-8.2); TRIGLYCERIDES 317 mg/dL (50-200); VLDL CHOLESTEROL 63 mg/dL (0-25)
[2018-09-24] MEDS ORDERED: DILT180C53 PO (12:22)
[2018-09-24] MEDS ORDERED: INSU100I13 SQ-INSULIN (12:22)
[2018-09-24] MEDS ORDERED: APIX5TAB PO (12:22)
[2018-09-24] MEDS ORDERED: INSU100I11 SQ-INSULIN (12:22)
[2018-09-24] MEDS ORDERED: CARV12.543 PO (12:22)
[2018-09-24 12:25] VITALS: BP 143/97
[2018-09-24] MEDS ORDERED: DILTIAZEM 240 MG CAP.ER.24H PO SCH (12:30)
[2018-09-24] MEDS ORDERED: AMIODARONE 200 MG TABLET PO SCH (12:30)
[2018-09-25] MEDS ORDERED: DILTIAZEM 125 MG in SODIUM CHLORIDE 0.9% 100 ML IV PRN (03:00)
== END 2018-09-24 15:30 | disposition home or self-care (01) | DRG 308 ==
LOC: ED 09-23 00:21 → EDIP 09-23 01:33 → 4EST 09-23 02:37 → DCLOUNGE 09-24 15:10
PROVIDERS: ADMIT Internal Medicine; ATTEND Internal Medicine
DX: I47.1 Supraventricular tachycardia (principal); N17.0 Acute kidney failure with tubular necrosis; D68.69 Other thrombophilia; E44.0 Moderate protein-calorie malnutrition; I50.32 Chronic diastolic (congestive) heart failure; E87.1 Hypo-osmolality and hyponatremia; E11.51 Type 2 diabetes mellitus with diabetic peripheral angiopathy without gangrene; E11.65 Type 2 diabetes mellitus with hyperglycemia; E78.5 Hyperlipidemia, unspecified; F15.10 Other stimulant abuse, uncomplicated; F17.210 Nicotine dependence, cigarettes, uncomplicated; I11.0 Hypertensive heart disease with heart failure; I48.91 Unspecified atrial fibrillation; I45.9 Conduction disorder, unspecified; J44.9 Chronic obstructive pulmonary disease, unspecified; Z79.4 Long term (current) use of insulin; Z82.49 Family history of ischemic heart disease and other diseases of the circulatory system; Z91.14 Patient's other noncompliance with medication regimen; Z91.19 Patient's noncompliance with other medical treatment and regimen; Z79.899 Other long term (current) drug therapy; Z90.49 Acquired absence of other specified parts of digestive tract
CPT/HCPCS: 36415; 71045; 80048; 80053; 80061; 80307; 81001; 82010; 82040; 82803; 82947; 82962; 83036; 83735; 83930; 84100; 84436; 84439; 84443; 84484; 85025; 87086; 90656; 93005; 96361; 96374; 96375; 99291; G0378; J1815; J7030